=== PATIENT | female | born 1960 | race Caucasian/White ===

== ENCOUNTER 2017-06-12 16:06 | Emergency (ER) | payer MEDICAID ==
[~2017-06-12] VITALS: Ht 170.2 cm; Wt 104.1 kg
[2017-06-12] MEDS ORDERED: INSU100V8 SQ (16:43)
[2017-06-12] MEDS ORDERED: COLE1TAB2 PO (16:46)
[2017-06-12] MEDS ORDERED: GLYB5TAB3 PO (16:47)
[2017-06-12] MEDS ORDERED: BUPR300T49 PO (16:48)
[2017-06-12] MEDS ORDERED: LISI-167 PO (16:50)
[2017-06-12 17:26] LABS: HEMATOCRIT 43.1 % (34.6-47.8); HEMOGLOBIN 14.9 g/dL (11.7-16.4); WHITE BLOOD COUNT 10.3 x10^3/uL (3.4-10)
[2017-06-12 17:39] LABS: ASPARTATE AMINO TRANSFERASE 23 U/L (15-37); BLOOD UREA NITROGEN 14 mg/dL (7-18)
[2017-06-12 17:51] LABS: IS PT STATUS REG ER OR PRE ER? YES
[2017-06-12] MEDS ORDERED: OMNIPAQUE 350 MG/ML, 100ML BOTTLE ONE (18:30)
[2017-06-12 20:03] VITALS: BP 143/87
== END 2017-06-12 20:05 | disposition home or self-care (01) ==
LOC: ED 19:03
DX: R07.89 Other chest pain (principal); I10 Essential (primary) hypertension; E11.9 Type 2 diabetes mellitus without complications
CPT/HCPCS: 36415; 71275; 80053; 83690; 84484; 85025; 93005; 99285; Q9967